=== PATIENT | female | born 2000 | race Caucasian/White ===

== ENCOUNTER → 2018-09-22 | Outpatient (CLI) | payer OTHER ==
--- NOTE | 2018-09-22 08:27 | Diagnostic Imaging Report ---
PROCEDURE: US Gallbladder. TECHNIQUE: Multiple real-time grayscale images were obtained over the right upper quadrant in various projections. INDICATION: Epigastric pain. COMPARISON: None available. FINDINGS: The liver is normal in size and echogenicity. There is no focal hepatic mass. The main portal vein is patent with antegrade flow. The gallbladder is distended without gallstones, wall thickening, or pericholecystic fluid. The common bile duct measures up to 0.3 cm in diameter. No intrahepatic biliary dilation. The visualized portions of the pancreas are normal. Portions of the head and tail are obscured by overlying bowel gas. The right kidney is normal in size. No hydronephrosis, shadowing calculi, or suspicious mass lesion. No right upper quadrant ascites. IMPRESSION: Normal right upper quadrant ultrasound. Dictated by: Dictated on workstation # [id number]
== END ==
LOC: RAD 07:23
PROVIDERS: ATTEND Nurse Practitioner Primary Care
DX: R10.13 Epigastric pain (principal)
CPT/HCPCS: 76705

== ENCOUNTER 2018-09-25 19:40 | Emergency (ER) | payer OTHER ==
[~2018-09-25] VITALS: Ht 149.9 cm; Wt 49.9 kg
[2018-09-25] MEDS ORDERED: NS IV 1000 ML 1,000 ML IV ONE (19:57)
[2018-09-25] MEDS ORDERED: KETOROLAC 30 MG/ML VIAL IVP STA (19:57)
--- NOTE | 2018-09-25 20:06 | ED General ---
General Chief Complaint: General Problems/Pain Stated Complaint: SORE THROAT,CONGESTION,SWOLLEN LYMPH NODES Source of Information: Patient Exam Limitations: No Limitations History of Present Illness Date Seen by Provider: Sep 25, 2018 Time Seen by Provider: 19:51 Initial Comments Here with report of sore throat and congestion for the last few days. States that the sore throat started last Saturday and the body aches started on Saturday or Saturday but worsened today. Take ibuprofen about 6 hours ago and it didn't help out much. She's had nasal congestion as well. Complains of abdominal, back and neck pain that starts at the lower back and hips and radiates up her back to her neck. Denies significant headache currently. Does have mild fever. No vomiting. Timing/Duration: 1-2 Days Severity: Moderate Modifying Factors: improves with Medication, improves with Rest Associated Systoms: No Chest Pain, No Cough; Fever/Chills; No Nausea/Vomiting, No Shortness of Air, No Weakness Allergies and Home Medications Allergies Coded Allergies: No Known Drug Allergies (Unverified , 09/25/18) Patient Home Medication List Home Medication List Reviewed: Yes Review of Systems Review of Systems Constitutional: see HPI; No chills; fever; No weakness EENTM: nose congestion, throat pain; No ear pain Respiratory: No cough, No short of breath Cardiovascular: No chest pain, No edema Gastrointestinal: abdominal pain; No diarrhea, No nausea, No vomiting Genitourinary: no symptoms reported Musculoskeletal: back pain, muscle pain; No muscle weakness; neck pain Skin: no symptoms reported Psychiatric/Neurological: No Symptoms Reported All Other Systems Reviewed Negative Unless Noted: Yes Past Xrngejr-Rpqigm-Wmlhbu Hx Past Med/Social Hx: Reviewed Nursing Past Med/Soc Hx Patient Social History Alcohol Use: Occasionally Uses Recreational Drug Use: No Smoking Status: Never a Smoker 2nd Hand Smoke Exposure: No Recent Foreign Travel: No Contact w/Someone Who Travel: No Recent Hopitalizations: No Past Medical History Surgeries: Yes Tonsillectomy Respiratory: Yes Asthma Cardiac: Yes (fainting heart syndrome) Genitourinary: No Gastrointestinal: No Musculoskeletal: No Endocrine: No HEENT: No Cancer: No Psychosocial: No Integumentary: No Blood Disorders: No Family Medical History Reviewed Nursing Family Hx No Pertinent Family Hx Physical Exam Vital Signs Vital Signs - First Documented 09/25/18 19:46 Temp 99.5 Pulse 81 Resp 17 B/P (MAP) 140/95 (110) Pulse Ox 100 O2 Delivery Room Air Capillary Refill : Height, Weight, BMI Height: '" Weight: lbs. oz. kg; BMI Method: General Appearance: No Apparent Distress, WD/WN HEENT: PERRL/EOMI, TMs Normal, Pharyngeal Erythema Neck: Full Range of Motion, Lymphadenopathy (L), Lymphadenopathy (R), Tender Lateral Respiratory: Lungs Clear, Normal Breath Sounds Cardiovascular: Regular Rate, Rhythm, No Murmur Gastrointestinal: Non Tender, Soft Back: Normal Inspection, No CVA Tenderness, No Vertebral Tenderness Extremity: Normal Range of Motion, Non Tender Neurologic/Psychiatric: Alert, Oriented x3 Skin: Normal Color, Warm/Dry Progress/Results/Core Measures Suspected Sepsis SIRS Temperature: Pulse: Respiratory Rate: Laboratory Tests 09/25/18 20:10: White Blood Count 8.9 Blood Pressure / Mean: Laboratory Tests 09/25/18 20:10: Creatinine 0.80, Platelet Count 252, Total Bilirubin 0.2 Results/Orders Lab Results Laboratory Tests Test 09/25/18 20:05 09/25/18 20:10 Range/Units Urine Color YELLOW Urine Clarity CLEAR Urine pH 8 5-9 Urine Specific [place] 1.015 L 1.016-1.022 Urine Protein NEGATIVE NEGATIVE Urine Glucose (UA) NEGATIVE NEGATIVE Urine Ketones NEGATIVE NEGATIVE Urine Nitrite NEGATIVE NEGATIVE Urine Bilirubin NEGATIVE NEGATIVE Urine Urobilinogen NORMAL NORMAL MG/DL Urine Leukocyte Esterase NEGATIVE NEGATIVE Urine RBC (Auto) NEGATIVE NEGATIVE Urine RBC NONE /HPF Urine WBC NONE /HPF Urine Squamous Epithelial Cells 2-5 /HPF Urine Crystals PRESENT H /LPF Urine Amorphous Sediment MOD JOEL PHOSPHATE H /LPF Urine Bacteria NONE /HPF Urine Casts NONE /LPF Urine Mucus NEGATIVE /LPF Urine Culture Indicated NO Urine Test NEGATIVE NEGATIVE White Blood Count 8.9 4.3-11.0 10^3/uL Red Blood Count 4.63 4.35-5.85 10^6/uL Hemoglobin 14.4 11.5-16.0 G/DL Hematocrit 44 35-52 % Mean Corpuscular Volume 95 80-99 FL Mean Corpuscular Hemoglobin 31 25-34 PG Mean Corpuscular Hemoglobin Concent 33 32-36 G/DL Red Cell Distribution Width 11.9 10.0-14.5 % Platelet Count 252 130-400 10^3/uL Mean Platelet Volume 11.2 H 7.4-10.4 FL Neutrophils (%) (Auto) 58 42-75 % Lymphocytes (%) (Auto) 26 12-44 % Monocytes (%) (Auto) 12 0-12 % Eosinophils (%) (Auto) 4 0-10 % Basophils (%) (Auto) 0 0-10 % Neutrophils # (Auto) 5.2 1.8-7.8 X 10^3 Lymphocytes # (Auto) 2.3 1.0-4.0 X 10^3 Monocytes # (Auto) 1.0 0.0-1.0 X 10^3 Eosinophils # (Auto) 0.3 0.0-0.3 10^3/uL Basophils # (Auto) 0.0 0.0-0.1 10^3/uL Sodium Level 141 135-145 MMOL/L Potassium Level 3.5 L 3.6-5.0 MMOL/L Chloride Level 105 98-107 MMOL/L Carbon Dioxide Level 22 21-32 MMOL/L Anion Gap 14 5-14 MMOL/L Blood Urea Nitrogen 16 7-18 MG/DL Creatinine 0.80 0.60-1.30 MG/DL Estimat Glomerular Filtration Rate > 60 BUN/Creatinine Ratio 20 Glucose Level 82 70-105 MG/DL Calcium Level 10.0 8.5-10.1 MG/DL Corrected Calcium 8.5-10.1 MG/DL Total Bilirubin 0.2 0.1-1.0 MG/DL Aspartate Amino Transf (AST/SGOT) 17 5-34 U/L Alanine Aminotransferase (ALT/SGPT) 15 0-55 U/L Alkaline Phosphatase 59 40-136 U/L C-Reactive Protein High Sensitivity 1.85 H 0.00-0.50 MG/DL Total Protein 7.9 6.4-8.2 GM/DL Albumin 4.8 H 3.2-4.5 GM/DL Monoscreen NEGATIVE NEGATIVE Micro Results Microbiology 09/25/18 Influenza Types A,B Antigen (JENNIE) - Final, Complete My Orders Orders - MUKESH LOPEZ MD Cbc With Automated Diff (09/25/18 19:57) Comprehensive Metabolic Panel (09/25/18 19:57) Hs C Reactive Protein (09/25/18 19:57) Monotest (09/25/18 19:57) Ua Culture If Indicated (09/25/18 19:57) Influenza A And B Antigens (09/25/18 19:57) Saline Lock/Iv-Start (09/25/18 19:57) Ns Iv 1000 Ml (Sodium Chloride 0.9%) (09/25/18 19:57) Ketorolac Injection (Toradol Injection) (09/25/18 19:57) Chest Pa/Lat (2 View) (09/25/18 20:49) Acetaminophen Tablet (Tylenol Tablet) (09/25/18 21:15) Hcg,Qualitative Urine (09/25/18 21:30) Medications Given in ED Current Medications Medications Dose Ordered Sig/Jerry Route Start Time Stop Time Status Last Admin Dose Admin Sodium Chloride 1,000 ml @ 0 mls/hr Q0M ONCE IV 09/25/18 19:57 09/25/18 20:01 DC 09/25/18 20:15 1,000 MLS/HR Vital Signs/I&O 09/25/18 19:46 Temp 99.5 Pulse 81 Resp 17 B/P (MAP) 140/95 (110) Pulse Ox 100 O2 Delivery Room Air Capillary Refill : Progress Note : Progress Note Seen and evaluated. IV, labs, UA and UCG ordered. Normal saline 1 L bolus and Toradol 30 mg IV ordered. Influenza and monoscreen ordered. Monitor patient. 2114: CBC is negative and does not show any indication of serious bacterial infection. CRP is low as well. UA is negative. We did get chest x-ray as she had complained of some rib pain over the last several weeks to rule out pneumonia. We will go ahead and give Tylenol 1 g by mouth. She states it's Toradol did help out with her pain in the fluids and felt as well. 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 [place] influenza are negative. At this point I do not believe we need to pursue further evaluation related to meningeal symptoms that she has full range of motion of her neck and labs do not indicate serious bacterial infection. This was discussed with the patient and she agrees at this point. 2155: States actually she is much better now. Chest x-ray negative. Discharged home with return precautions. Patient verbalize understanding instructions and agreement with plan. Diagnostic Imaging Diagonstic Imaging: Xray Plain Films/CT/US/NM/MRI: chest Comments VIA [facility], [facility]. [place], [place] NAME: JUAN CARVALHO [facility] REC#: [id number] PT STATUS: REG ER : 2000 PHYSICIAN: MUKESH LOPEZ MD ADMIT DATE: 09/25/18/ER Draft Date of Exam:09/25/18 CHEST PA/LAT (2 VIEW) INDICATION: Left-sided chest pain. COMPARISON: None. EXAMINATION: Frontal and lateral views of the chest were obtained. FINDINGS: Normal heart size and pulmonary vascularity. The lungs are clear. There are no signs of infiltrate, pleural effusions or pneumothoraces. The visualized osseous structures show no acute abnormalities. IMPRESSION: No acute process. No signs of infiltrates, effusions or pneumothoraces. Dictated on workstation # [id number] Dict: 09/25/[id number] Trans: 09/25/182148 [facility] [id number] Interpreted by: STEPHANIE BENITEZ MD Electronically signed by: Departure Impression Primary Impression: Viral upper respiratory infection Additional Impression: Myalgia Disposition: HOME, SELF-CARE Condition: Improved Departure-Patient Inst. Decision time for Depature: 21:58 Referrals: [facility] (PCP/Family) Primary Care Physician Patient Instructions: Viral Upper Respiratory Infection, Adult (DC) Add. Discharge Instructions: All discharge instructions reviewed with patient and/or family. Voiced understanding. Drink plenty of fluids. You may take ibuprofen 400-600 mg every 8 hours as needed for fever or pain. You may take Tylenol/acetaminophen 1000 mg every 8 hours as needed for fever or pain. Follow-up with your DrCarlos Enrique in a few days for recheck and further evaluation if not improved. Return for worse pain, fever, vomiting, weakness, vision or balance problems, increasing neck pain or headache or other concerns as needed. Copy Copies To 1: KINGA MORRIS MD, TIMOTHY D MD Sep 25, 2018 20:06
[2018-09-25 20:19] LABS: BASOPHILS % (AUTO) 0 % (0-10); EOSINOPHILS # (AUTO) 0.3 10^3/uL (0.0-0.3); EOSINOPHILS % (AUTO) 4 % (0-10); HEMATOCRIT 44 % (35-52); HEMOGLOBIN 14.4 G/DL (11.5-16.0); LYMPHOCYTES # (AUTO) 2.3 X 10^3 (1.0-4.0); LYMPHOCYTES % (AUTO) 26 % (12-44); MEAN CORPUSCULAR HEMOGLOBIN 31 PG (25-34); MEAN CORPUSCULAR HGB CONC 33 G/DL (32-36); MEAN CORPUSCULAR VOLUME 95 FL (80-99); MEAN PLATELET VOLUME 11.2 FL (7.4-10.4); MONOCYTES % (AUTO) 12 % (0-12); NEUTROPHILS # (AUTO) 5.2 X 10^3 (1.8-7.8); NEUTROPHILS % (AUTO) 58 % (42-75); PLATELET COUNT 252 10^3/uL (130-400); RED BLOOD COUNT 4.63 10^6/uL (4.35-5.85); RED CELL DISTRIBUTION WIDTH 11.9 % (10.0-14.5); WHITE BLOOD COUNT 8.9 10^3/uL (4.3-11.0)
[2018-09-25 20:20] LABS: BILIRUBIN,URINE NEGATIVE (NEGATIVE); CLARITY,URINE CLEAR; COLOR,URINE YELLOW; GLUCOSE, URINE (UA) NEGATIVE (NEGATIVE); KETONES,URINE NEGATIVE (NEGATIVE); LEUKOCYTE ESTERASE ,URINE NEGATIVE (NEGATIVE); NITRITE,URINE NEGATIVE (NEGATIVE); PH,URINE 8 (5-9); PROTEIN,URINE NEGATIVE (NEGATIVE); UROBILINOGEN,URINE NORMAL (NORMAL)
[2018-09-25 20:27] LABS: AMORPHOUS SEDIMENT,UR MOD AMOR PHOSPHATE /LPF
[2018-09-25 20:45] LABS: ALANINE AMINOTRANSFERASE 15 U/L (0-55); ALBUMIN 4.8 GM/DL (3.2-4.5); ALKALINE PHOSPHATASE 59 U/L (40-136); BILIRUBIN,TOTAL 0.2 MG/DL (0.1-1.0); BUN/CREATININE RATIO 20; CARBON DIOXIDE 22 MMOL/L (21-32); CHLORIDE 105 MMOL/L (98-107); GFR ESTIMATED > 60; GLUCOSE 82 MG/DL (70-105); POTASSIUM 3.5 MMOL/L (3.6-5.0); SODIUM 141 MMOL/L (135-145); TOTAL PROTEIN 7.9 GM/DL (6.4-8.2)
[2018-09-25] MEDS ORDERED: ACETAMINOPHEN 500 MG TAB (TYLENOL) PO STA (21:15)
--- NOTE | 2018-09-25 21:50 | Diagnostic Imaging Report ---
INDICATION: Left-sided chest pain. COMPARISON: None. EXAMINATION: Frontal and lateral views of the chest were obtained. FINDINGS: Normal heart size and pulmonary vascularity. The lungs are clear. There are no signs of infiltrate, pleural effusions or pneumothoraces. The visualized osseous structures show no acute abnormalities. IMPRESSION: No acute process. No signs of infiltrates, effusions or pneumothoraces. Dictated by: Dictated on workstation # [id number]
[2018-09-25 22:11] VITALS: BP 108/64
--- OUTSIDE RECORDS SUMMARY | 2018-09-26 04:25 | XMS REPORT ---
Author Ana Maria Ahumada [facility] Address [address] [place] [address] Care Team Providers Care Card Grinder Helper Name Role Phone Ana Maria Hewitt Unavailable PROBLEMS Type Condition ICD9-CM Code [id number] Code Onset Dates Condition Status SNOMED Code Problem Amenorrhea N91.2 Active 21270420 ALLERGIES No Known Allergies ENCOUNTERS Encounter Location Date Diagnosis [facility] [address] [place], [place] [id number] Mar, Amenorrhea N91.2 and Screening for STD (sexually transmitted disease) Z11.3 IMMUNIZATIONS No Known Immunizations SOCIAL HISTORY Never Assessed REASON FOR VISIT pelvic exam and STD testing PLAN OF CARE Activity Details Follow Up prn Reason: Pending Test RPR, Rfx Qn RPR/Confirm TP Pending Test Human Immunodeficiency Virus 1/O/2 (HIV-1/O/2) Antibodies, Preliminary Test Pending Test Hep C Antibody Pending Test HSV Type 2-Specific Ab, IgG Pending Test Chlamydia/GC Amplification Pending Test Ultrasound : Pelvic Limited VITAL SIGNS BMI 22.82 kg/m2 2018-04-01 Height 59 in 2018-04-01 Weight 113 lbs 2018-04-01 Blood pressure systolic 120 mm Hg 2018-04-01 Blood pressure diastolic 78 mm Hg 2018-04-01 MEDICATIONS No Known Medications RESULTS Name Result Date Reference Range Test, Urine Test, Urine postive PROCEDURES Procedure Date Ordered Result Body Site URINE TEST URINE TEST, BY VISUAL COLOR COMPARISON METHODS April 01, 2018 INSTRUCTIONS MEDICATIONS ADMINISTERED No Known Medications MEDICAL (GENERAL) HISTORY Type Description Date Surgical History tonsillectomy Surgical History adnoidectomy Surgical History ear tubes
--- OUTSIDE RECORDS SUMMARY | 2018-09-26 04:25 | XMS REPORT | Continuity of Care Document ---
Author Author [facility] Organization [facility] Address [address] [place] [address] ;ext= Care Team Providers Care Fire Suppression Captain Name Role Phone SVETA BURTON Admphyjosephine Unavailable SVETA BURTON Attkuldeep Unavailable Hospital Admission Diagnosis * No data in the System Social History Element Description Code Description Smoking Status Code System Start Date End Date Smoking Status [id number] Never smoker SNOMED-CT Problems * No Problems Reported Medications SNOMED CT Description 447523819 Patient Not On Self-Medication Allergies Code Code System Allergy Substance Type Reaction Severity Start Date End Date Status 361573 RXNorm Triple Antibiotic Max St Drug allergy Rash Moderate 2016 Active Results Laboratory Results Order: HCG Qualatative Urine Legend: D=Delta, H=High, L=Low, HH=Critical High, LL=Critical Low, AA=Critical Alpha-Numeric, C=Corrected, A=Abnormal LOINC Test Result Flag Range Units Date 1HCG SerPl-Imp Negative NEGATIVE 06/01/2017 16:50 * Performing [facility] Foot[facility]:* [id number] [address] [place] [address] - BLUE M RITO Vital Signs Vitals Value Date O2% BldC Oximetry 96 06/01/2017 BP Systolic 125 mmHg 06/01/2017 BP Diastolic 71 mmHg 06/01/2017 Height 59 in 06/01/2017 Weight Measured 111 lbs 06/01/2017 BSA (Body Surface Area) 1.84977 06/01/2017 BMI (Body Mass Index) 22.6 06/01/2017 Body Temperature 97.9 F 06/01/2017 Respiratory Rate 14 06/01/2017 Plan of Care * No data in the system Procedures Code Code System Procedure Name Target Site Date of Procedure [id number] SNOMED Tonsillectomy and adenoidectomy Unknown Encounters * No data in the system Immunizations * No data in the system Functional Status * No data in the system Hospital Discharge Instructions * No data in the system
--- OUTSIDE RECORDS SUMMARY | 2018-09-26 04:25 | XMS REPORT ---
Author Author Ana Maria Hewitt [facility] Address [address] [place] [address] Care Team Providers Care Residency Program Coordinator Name Role Phone Ana Maria Hewitt Unavailable PROBLEMS Type Condition ICD9-CM Code [id number] Code Onset Dates Condition Status SNOMED Code Problem Amenorrhea N91.2 Active 35048794 ALLERGIES No Information ENCOUNTERS Encounter Location Date Diagnosis [facility] [address] [place], [place] [id number] Mar, [facility] [address] [place] [id number] Mar, Amenorrhea N91.2 and Screening for STD (sexually transmitted disease) Z11.3 IMMUNIZATIONS No Known Immunizations SOCIAL HISTORY Never Assessed REASON FOR VISIT Lab results PLAN OF CARE VITAL SIGNS MEDICATIONS Unknown Medications RESULTS No Results PROCEDURES No Known procedures INSTRUCTIONS MEDICATIONS ADMINISTERED No Known Medications MEDICAL (GENERAL) HISTORY Type Description Date Surgical History tonsillectomy Surgical History adnoidectomy Surgical History ear tubes
--- OUTSIDE RECORDS SUMMARY | 2018-09-26 04:26 | XMS REPORT | Continuity of Care Document ---
Author Author [facility] Organization [facility] Address [address] [place] [address] ;ext= Care Team Providers Care Ceo Name Role Phone SVETA BURTON Admphys Unavailable SVETA BURTON Attkuldeep Unavailable Hospital Admission Diagnosis Code Admission Diagnosis Date [id number] Contusion of scalp Social History Element Description Code Description Smoking Status Code System Start Date End Date Smoking Status [id number] Never smoker SNOMED-CT Problems * No Problems Reported Medications SNOMED CT Description 466147319 Patient Not On Self-Medication Allergies Code Code System Allergy Substance Type Reaction Severity Start Date End Date Status 830320 RXNorm Triple Antibiotic Max St Drug allergy Rash Moderate 2016 Active Results Laboratory Results Order: HCG Qualatative Urine Legend: D=Delta, H=High, L=Low, HH=Critical High, LL=Critical Low, AA=Critical Alpha-Numeric, C=Corrected, A=Abnormal LOINC Test Result Flag Range Units Date 1HCG SerPl-Imp Negative NEGATIVE 06/01/2017 16:50 * Performing Lab Footnotes:* [id number] [address] [place] [address] - BLUE M RITO Radiology Results Order: CTTHOWO CT Thoracic Spine WO/Contrast* Exam Completion Date:06/01/2017 16 :48 INDICATION: fall, thoracic painCOMPARISON: none.CT Thoracic Spine WO/Contrast: Transverse, coronal, sagittal imaging. There moriah [employer] report. Vertebral alignment is within normal limits. There is noevidence of significant subluxation. . Disc spacing appears normal. Noevidence of a compression fracture. IMPRESSION: Within normal limits.Released By SCOOBY ZELAYAate : 06/03/2017 08:42 Order: CTHDWO CT Head or Brain WO/Contrast* Exam Completion Date:06/01/2017 16: 47 INDICATION: fall, head injuryCOMPARISON: none.CT Head or Brain WO/Contrast: There is a [employer] report. Ventricle sizeappears to be normal. There is no evidence of hemorrhage, acute infarct, ormass. There is no midline shift.IMPRESSION: Within normal limits.Released By SCOOBY ZELAYAate: 08:38 Order: CTCERWO CT Cerv Spine WO/Contrast* Exam Completion Date:06/01/2017 16:47 INDICATION: fall, neck painCOMPARISON: none.CT Cerv Spine WO/Contrast: Transverse, coronal, sagittal imaging. There moriah [employer] report. Incomplete fusion of C1 should be a developmental variant.Vertebral alignment is within normal limits. There is no evidence ofsignificant subluxation. No significant disc space narrowing. No evidence of acompression fracture. IMPRESSION: No evidence of a fracture.Released By SVETA WASHNIGTON, SCOOBYate: 06/03/2017 08:40 Vital Signs Vitals Value Date O2% BldC Oximetry 96 06/01/2017 BP Systolic 125 mmHg 06/01/2017 BP Diastolic 71 mmHg 06/01/2017 Height 59 in 06/01/2017 Weight Measured 111 lbs 06/01/2017 BSA (Body Surface Area) 1.94767 06/01/2017 BMI (Body Mass Index) 22.6 06/01/2017 Body Temperature 97.9 F 06/01/2017 Respiratory Rate 14 06/01/2017 Plan of Care * No data in the system Procedures Code Code System Procedure Name Target Site Date of Procedure [id number] SNOMED Tonsillectomy and adenoidectomy Unknown Encounters Date Code Diagnosis Status (ICD10) - [id number] CONTUSION SCALP INITIAL ENCOUNTER Active Immunizations * No data in the system Functional Status * No data in the system Hospital Discharge Instructions * No data in the system
--- OUTSIDE RECORDS SUMMARY | 2018-09-26 04:26 | XMS REPORT | Continuity of Care Document ---
Author Author [facility] Organization [facility] Address Unknown Phone Unavailable Allergies Active Description Code Type Severity Reaction Onset Reported/Identified Relationship to Patient Clinical Status Yes Triple Antibiotic Drug N/A N/A Yes Triple Antibiotic [place] [address] [address] Moderate Rash 06/01/2017 Medications There is no data. Problems Date Dx Coded Attending Type Code Diagnosis Diagnosed By 07/18/2017 SVETA BURTON S00.03XA CONTUSION OF SCALP, INITIAL ENCOUNTER 07/18/2017 SVETA BURTON Y92.[address] OF OCCURRENCE OF THE EXTERNAL CAUSE 07/18/2017 SVETA BURTON Y93.45 ACTIVITY, CHEERLEADING Procedures There is no data. Results There is no data. Encounters ACCT No. Visit Date/Time Discharge Status Pt. Type Provider Facility Loc./Unit Complaint [id number] 06/01/2017 16:38:00 ACT Unknown SVETA BURTON [facility] NSER HEAD INJURY-FELL DURING CHEER STUNT [id number] 02/12/2018 09:02:00 02/12/2018 11:40:00 DIS Emergency Christina Wang [facility] ED ed visit [id number] 12/10/2017 11:39:46 12/10/2017 23:59:59 DIS Outpatient MARIA DOLORES BRIZUELA [facility] RAD [id number] 06/08/2017 17:14:18 ACT Document Registration
== END 2018-09-25 22:13 | disposition home or self-care (01) ==
LOC: EDUNIT# 19:40 → ER 19:43
DX: J06.9 Acute upper respiratory infection, unspecified (principal); M79.10 Myalgia, unspecified site; J45.909 Unspecified asthma, uncomplicated; Z90.89 Acquired absence of other organs
CPT/HCPCS: 36415; 71046; 80053; 81000; 84703; 85025; 86141; 86308; 87804; 96361; 96374

== ENCOUNTER 2018-09-26 22:48 | Emergency (ER) | payer OTHER ==
[~2018-09-26] VITALS: Ht 149.9 cm; Wt 49.9 kg
[2018-09-26] MEDS ORDERED: NS IV 1000 ML 1,000 ML IV ONE (23:26)
[2018-09-26] MEDS ORDERED: KETOROLAC 30 MG/ML VIAL IVP STA (23:35)
[2018-09-26] MEDS ORDERED: ORPHENADRINE 60 MG/2 ML (NORFLEX) AMP IV STA (23:35)
--- NOTE | 2018-09-26 23:44 | ED General ---
General Chief Complaint: General Problems/Pain Stated Complaint: SPINAL NECK PAIN;HEAD PAIN Source of Information: Patient Exam Limitations: No Limitations History of Present Illness Date Seen by Provider: Sep 26, 2018 Time Seen by Provider: 23:25 Initial Comments Here with report of neck pain and upper back pain. Seen yesterday after having febrile illness. Patient was evaluated then found to have normal white count and low CRP. We did defer lumbar puncture due to the neck pain at that time. Today she comes back with the pain that was radiating from the hip sent to the head but now is radiating from the mid back up to the head. It does appear to be more paraspinous from the upper thoracic and through the neck to the occiput bilateral. Denies nausea or vomiting. She has been taking ibuprofen today. Denies fever today. Last dose of ibuprofen was 400 mg at 930. Denies dysuria or diarrhea. She did report trying to increase her fluids today. Timing/Duration: 2-3 Days, Getting Worse Severity: Moderate Associated Systoms: No Chest Pain, No Fever/Chills; Headaches; No Nausea/ Vomiting, No Shortness of Air, No Weakness Allergies and Home Medications Allergies Coded Allergies: orphenadrine (Verified Adverse Reaction, Unknown, tachycardia, anxiety, ) Patient Home Medication List Home Medication List Reviewed: Yes Review of Systems Review of Systems Constitutional: see HPI, chills; No fever EENTM: no symptoms reported Respiratory: No cough, No short of breath Cardiovascular: No chest pain, No edema Gastrointestinal: No abdominal pain, No nausea, No vomiting Genitourinary: no symptoms reported Musculoskeletal: see HPI, back pain, muscle stiffness, neck pain Skin: No change in color, No rash Psychiatric/Neurological: See HPI, Headache; Denies Numbness, Denies Paresthesia, Denies Tingling All Other Systems Reviewed Negative Unless Noted: Yes Past Lctellf-Xutsmt-Kjsuim Hx Past Med/Social Hx: Reviewed Nursing Past Med/Soc Hx Patient Social History Alcohol Use: Denies Use Recreational Drug Use: No Smoking Status: Never a Smoker 2nd Hand Smoke Exposure: No Recent Foreign Travel: No Contact w/Someone Who Travel: No Recent Hopitalizations: No Past Medical History Surgeries: Yes Tonsillectomy Respiratory: Yes Asthma Cardiac: Yes (fainting heart syndrome) Genitourinary: No Gastrointestinal: No Musculoskeletal: No Endocrine: No HEENT: No Cancer: No Psychosocial: No Integumentary: No Blood Disorders: No Family Medical History Reviewed Nursing Family Hx No Pertinent Family Hx Physical Exam Vital Signs Vital Signs - First Documented 09/26/18 23:16 Temp 97.7 Pulse 70 Resp 12 B/P (MAP) 141/74 (96) Pulse Ox 100 O2 Delivery Room Air Capillary Refill : Height, Weight, BMI Height: 4'11.00" Weight: 110lbs. oz. 49.448099oi; BMI Method:Stated General Appearance: No Apparent Distress, WD/WN HEENT: PERRL/EOMI, TMs Normal, Normal ENT Inspection, Pharynx Normal Neck: Non Tender, Supple Respiratory: Lungs Clear, Normal Breath Sounds Cardiovascular: Regular Rate, Rhythm, No Murmur Gastrointestinal: Non Tender, Soft Back: No CVA Tenderness, No Vertebral Tenderness, Other (tender along the lateral aspect of the upper thoracic spine and cervical spine bilaterally from the level of the shoulder blades to the occiput.) Neurologic/Psychiatric: Alert, Oriented x3, No Motor/Sensory Deficits Skin: Normal Color, Warm/Dry Progress/Results/Core Measures Suspected Sepsis SIRS Temperature: Pulse: Respiratory Rate: Laboratory Tests 09/26/18 23:55: White Blood Count 11.4H Blood Pressure / Mean: Laboratory Tests 09/26/18 23:55: Creatinine 0.78, Platelet Count 265, Total Bilirubin 0.2 Results/Orders Lab Results Laboratory Tests Test 09/26/18 23:55 Range/Units White Blood Count 11.4 H 4.3-11.0 10^3/uL Red Blood Count 4.18 L 4.35-5.85 10^6/uL Hemoglobin 13.5 11.5-16.0 G/DL Hematocrit 40 35-52 % Mean Corpuscular Volume 96 80-99 FL Mean Corpuscular Hemoglobin 32 25-34 PG Mean Corpuscular Hemoglobin Concent 34 32-36 G/DL Red Cell Distribution Width 11.9 10.0-14.5 % Platelet Count 265 130-400 10^3/uL Mean Platelet Volume 11.1 H 7.4-10.4 FL Neutrophils (%) (Auto) 65 42-75 % Lymphocytes (%) (Auto) 24 12-44 % Monocytes (%) (Auto) 8 0-12 % Eosinophils (%) (Auto) 3 0-10 % Basophils (%) (Auto) 0 0-10 % Neutrophils # (Auto) 7.4 1.8-7.8 X 10^3 Lymphocytes # (Auto) 2.7 1.0-4.0 X 10^3 Monocytes # (Auto) 0.9 0.0-1.0 X 10^3 Eosinophils # (Auto) 0.4 H 0.0-0.3 10^3/uL Basophils # (Auto) 0.0 0.0-0.1 10^3/uL Sodium Level 140 135-145 MMOL/L Potassium Level 4.0 3.6-5.0 MMOL/L Chloride Level 107 98-107 MMOL/L Carbon Dioxide Level 20 L 21-32 MMOL/L Anion Gap 13 5-14 MMOL/L Blood Urea Nitrogen 12 7-18 MG/DL Creatinine 0.78 0.60-1.30 MG/DL Estimat Glomerular Filtration Rate > 60 BUN/Creatinine Ratio 15 Glucose Level 92 70-105 MG/DL Calcium Level 9.7 8.5-10.1 MG/DL Corrected Calcium 9.3 8.5-10.1 MG/DL Total Bilirubin 0.2 0.1-1.0 MG/DL Aspartate Amino Transf (AST/SGOT) 14 5-34 U/L Alanine Aminotransferase (ALT/SGPT) 14 0-55 U/L Alkaline Phosphatase 55 40-136 U/L C-Reactive Protein High Sensitivity 1.27 H 0.00-0.50 MG/DL Total Protein 7.3 6.4-8.2 GM/DL Albumin 4.5 3.2-4.5 GM/DL My Orders Orders - MUKESH LOPEZ MD Cbc With Automated Diff (09/26/18 23:26) Comprehensive Metabolic Panel (09/26/18 23:26) Hs C Reactive Protein (09/26/18 23:26) Saline Lock/Iv-Start (09/26/18 23:26) Ns Iv 1000 Ml (Sodium Chloride 0.9%) (09/26/18 23:26) Ketorolac Injection (Toradol Injection) (09/26/18 23:35) Orphenadrine Injection (Norflex Injectio (09/26/18 23:35) Ct Head Wo (09/27/18 00:01) Chest Pa/Lat (2 View) (09/27/18 00:01) Diphenhydramine Tablet (Benadryl Tablet) (09/27/18 00:08) Dexamethasone Injection (Decadron Inject (09/27/18 00:09) Amoxicillin/Clavulanate Tablet (Augmenti (09/27/18 01:23) Medications Given in ED Current Medications Medications Dose Ordered Sig/Jerry Route Start Time Stop Time Status Last Admin Dose Admin Dexamethasone Sodium Phosphate 10 mg STK-MED ONCE .ROUTE 09/27/18 00:09 09/27/18 00:12 DC 09/27/18 00:15 10 MG Diphenhydramine HCl 25 mg STK-MED ONCE PO 09/27/18 00:08 09/27/18 00:10 DC 09/27/18 00:15 25 MG Sodium Chloride 1,000 ml @ 0 mls/hr Q0M ONCE IV 09/26/18 23:26 09/26/18 23:27 DC 09/26/18 23:56 1,000 MLS/HR Vital Signs/I&O 09/26/18 23:16 Temp 97.7 Pulse 70 Resp 12 B/P (MAP) 141/74 (96) Pulse Ox 100 O2 Delivery Room Air Capillary Refill : Progress Note : Progress Note Seen and evaluated. IV, labs, chest x-ray and CT head ordered. Normal saline 1 L bolus. Norflex 60 mg IV and Toradol 15 mg IV. Negative urine test last night. Patient did have reaction after Norflex and felt heart racing. Benadryl 25 mg by mouth ordered. Decadron 10 mg IV ordered. She only allowed for half of the Decadron. Monitor patient. 0125: Labs reviewed and CT complete. Patient feels much better now. CT does show left and right ethmoid sinus opacification concerning for sinusitis. This was discussed with the patient. We will treat for sinusitis. Augmentin 875 one tab by mouth given. Given that she is feeling better and sinus infection noted which could account for her headache we will go ahead and treat for that. Patient does not want to do a lumbar puncture. We will treat the sinusitis as well as what appears to be muscular back pain. She is in full agreement with this plan. Discharged home with return precautions. Patient verbalize understanding instructions and agreement with plan. Diagnostic Imaging Diagonstic Imaging: CT Plain Films/CT/US/NM/MRI: head Comments No acute hemorrhage, hydrocephalus or mass effect. Severe left and moderate right ethmoid sinus opacification. Frothy secretion in the left sphenoid sinus. Reviewed: Reviewed [place] Hawk Study, Reviewed by Me Diagonstic Imaging: Xray Plain Films/CT/US/NM/MRI: chest Comments No acute findings on two-view chest x-ray Reviewed: Reviewed by Me Departure Impression Primary Impression: Sinusitis chronic, ethmoidal Additional Impressions: Back pain Qualified Codes: M54.6 - Pain in thoracic spine Headache Qualified Codes: R51 - Headache Disposition: 01 HOME, SELF-CARE Condition: Improved Departure-Patient Inst. Decision time for Depature: 01:34 Referrals: [facility] (PCP/Family) Primary Care Physician Patient Instructions: Headache, Adult (DC), Sinusitis, Adult (DC), Upper Back Pain (DC) Add. Discharge Instructions: All discharge instructions reviewed with patient and/or family. Voiced understanding. You may continue Tylenol/acetaminophen 1000 mg every 8 hours as needed for pain. You may take ibuprofen 400 or 600 mg every 8 hours as needed for pain. Drink plenty of fluids. You may use Afrin nasal spray or the generic, 12 hour relief, 2 sprays to each nostril twice daily for 3 days only and then stop. Do not use more than 3 days. Scripts Amoxicillin/Potassium Clav (Augmentin 875-125 Tablet) 1 Each Tablet 1 EACH PO BID, #20 TAB 0 Refills Prov: MUKESH LOPEZ MD 09/27/18 MUKESH LOPEZ MD Sep 26, 2018 23:44
[2018-09-27 00:04] LABS: BASOPHILS % (AUTO) 0 % (0-10); EOSINOPHILS # (AUTO) 0.4 10^3/uL (0.0-0.3); EOSINOPHILS % (AUTO) 3 % (0-10); HEMATOCRIT 40 % (35-52); HEMOGLOBIN 13.5 G/DL (11.5-16.0); LYMPHOCYTES # (AUTO) 2.7 X 10^3 (1.0-4.0); LYMPHOCYTES % (AUTO) 24 % (12-44); MEAN CORPUSCULAR HEMOGLOBIN 32 PG (25-34); MEAN CORPUSCULAR HGB CONC 34 G/DL (32-36); MEAN CORPUSCULAR VOLUME 96 FL (80-99); MEAN PLATELET VOLUME 11.1 FL (7.4-10.4); MONOCYTES # (AUTO) 0.9 X 10^3 (0.0-1.0); MONOCYTES % (AUTO) 8 % (0-12); NEUTROPHILS # (AUTO) 7.4 X 10^3 (1.8-7.8); NEUTROPHILS % (AUTO) 65 % (42-75); PLATELET COUNT 265 10^3/uL (130-400); RED BLOOD COUNT 4.18 10^6/uL (4.35-5.85); RED CELL DISTRIBUTION WIDTH 11.9 % (10.0-14.5); WHITE BLOOD COUNT 11.4 10^3/uL (4.3-11.0)
[2018-09-27] MEDS ORDERED: diphenhydrAMINE 25 MG TAB (BENADRYL) PO ONE (00:08)
[2018-09-27] MEDS: DEXAMETHASONE 10 MG/ML (DECADRON) 1 ML VIAL ONE ×2 (00:15→00:19)
--- OUTSIDE RECORDS SUMMARY | 2018-09-27 00:19 | XMS REPORT | Continuity of Care Document ---
Author Author [facility] Organization [facility] Address Unknown Phone Unavailable Allergies Active Description Code Type Severity Reaction Onset Reported/Identified Relationship to Patient Clinical Status Yes Triple Antibiotic Drug N/A N/A Yes [place] [address] Moderate Rash 06/01/2017 Medications There is no [...] Status Pt. Type Provider Facility Loc./Unit Complaint [id number] 06/01/2017 16:38:00 ACT Unknown SVETA BURTON [facility] NSER HEAD INJURY-FELL DURING CHEER STUNT [id number] 02/12/2018 09:02:00 02/12/2018 11:40:00 DIS Emergency Christina Wang [facility] ED ed visit [id number] 12/10/2017 11:39:46 12/10/2017 23:59:59 DIS Outpatient MARIA DOLORES BRIZUELA [facility]HA RAD [id number] 06/08/2017 17:14:18 ACT Document Registration
[2018-09-27 00:22] LABS: ALANINE AMINOTRANSFERASE 14 U/L (0-55); ALBUMIN 4.5 GM/DL (3.2-4.5); ALKALINE PHOSPHATASE 55 U/L (40-136); BILIRUBIN,TOTAL 0.2 MG/DL (0.1-1.0); BUN/CREATININE RATIO 15; CALCIUM 9.7 MG/DL (8.5-10.1); CARBON DIOXIDE 20 MMOL/L (21-32); CHLORIDE 107 MMOL/L (98-107); CREATININE SERUM 0.78 MG/DL (0.60-1.30); GFR ESTIMATED > 60; GLUCOSE 92 MG/DL (70-105); SODIUM 140 MMOL/L (135-145); TOTAL PROTEIN 7.3 GM/DL (6.4-8.2)
[2018-09-27] MEDS ORDERED: AUGMENTIN 875 MG TAB (AMOXICILLIN/CLAVULANATE) PO STA (01:23)
[2018-09-27] MEDS ORDERED: AMOX-358 PO (01:38)
[2018-09-27 01:50] VITALS: BP 118/57
--- NOTE | 2018-09-27 05:38 | Diagnostic Imaging Report ---
INDICATION: Headache and back pain. COMPARISON: 09/25/2018. FINDINGS: Frontal and lateral views of the chest demonstrate normal heart size and pulmonary vascularity. The lungs are clear. There are no signs of infiltrate, pleural effusions or pneumothoraces. The visualized osseous structures show no acute abnormalities. IMPRESSION: 1. No acute process. No signs of infiltrates, effusions or pneumothoraces. Dictated by: Dictated on workstation # [id number]
--- NOTE | 2018-09-27 06:42 | Diagnostic Imaging Report ---
INDICATION: Headache and back pain TECHNIQUE: Routine non contrast-enhanced axial images were obtained from the skull base to the vertex. COMPARISON: None. FINDINGS: The ventricles and cortical sulci are normal in size and contour. There is no midline shift or mass-effect. No acute intra-axial hemorrhage is seen. There are no abnormal areas of increased or decreased density to suggest acute hemorrhage or edema. No extra-axial masses or collections are present. The bony calvarium is intact. The visualized paranasal sinuses show scattered opacification of the ethmoid air cells and mucosal thickening of the frontal and sphenoid sinuses. The mastoid air cells are clear. IMPRESSION: 1. No acute intracranial abnormality. No CT evidence of mass, acute infarct or intracranial hemorrhage. 2. Paranasal sinus disease. Clinical correlation for underlying sinusitis is recommended. Dictated by: Dictated on workstation # [id number]
== END 2018-09-27 01:50 | disposition home or self-care (01) ==
LOC: EDUNIT# 22:48 → ER 22:50
DX: J32.2 Chronic ethmoidal sinusitis (principal); M54.2 Cervicalgia; R51 Headache; J45.909 Unspecified asthma, uncomplicated; Z88.8 Allergy status to other drugs, medicaments and biological substances; Z90.89 Acquired absence of other organs
CPT/HCPCS: 36415; 70450; 71046; 80053; 85025; 86141; 96374; 96375

== ENCOUNTER → 2019-01-27 | Emergency (ER) | payer OTHER ==
[~2019-01-27] VITALS: Ht 149.9 cm; Wt 49.9 kg
[~2019-01-27] MED LIST: ACETAMINOPHEN 500 MG TAB (TYLENOL) PO STA; AMOX-358 PO; APAP 325 MG/10.15 ML LIQ (TYLENOL) UDC PO STA
--- OUTSIDE RECORDS SUMMARY | 2019-01-27 14:10 | XMS REPORT | Continuity of Care Document ---
Author Author [facility] Organization [facility] Address Unknown Phone Unavailable Allergies Active Description Code Type Severity Reaction Onset Reported/Identified Relationship to Patient Clinical Status Yes Triple Antibiotic Drug N/A N/A Yes [place] [address] Moderate Rash 06/01/2017 Yes No Known Drug Allergies [id number] Drug Allergy Unknown N/A 09/25/2018 Yes orphenadrine [id number] Drug Allergy Unknown tachycardia, an 09/27/2018 Medications There is no data. Problems Date Dx Coded Attending Type Code Diagnosis Diagnosed By 07/18/2017 SVETA BURTON S00.03XA CONTUSION OF SCALP, INITIAL ENCOUNTER 07/18/2017 SVETA BURTON Y92.214 [facility] OF OCCURRENCE OF THE EXTERNAL CAUSE 07/18/2017 SVETA BURTON Y93.45 ACTIVITY, CHEERLEADING 09/24/2018 EDSON HATFIELD [employer] Ot R10.13 EPIGASTRIC PAIN 09/25/2018 MUKESH LOPEZ MD, Ot J02.9 ACUTE PHARYNGITIS, UNSPECIFIED 09/25/2018 MUKESH LOPEZ MD, Ot J06.9 ACUTE UPPER RESPIRATORY INFECTION, UNSPE 09/25/2018 MUKESH LOPEZ MD, Ot J45.909 UNSPECIFIED ASTHMA, UNCOMPLICATED 09/25/2018 MUKESH LOPEZ MD Ot M79.10 MYALGIA, UNSPECIFIED SITE 09/25/2018 MUKESH LOPEZ MD Ot Z90.89 ACQUIRED ABSENCE OF OTHER ORGANS 09/27/2018 MUKESH LOPEZ MD, Ot J32.2 CHRONIC ETHMOIDAL SINUSITIS 09/27/2018 MUKESH LOPEZ MD, Ot J45.909 UNSPECIFIED ASTHMA, UNCOMPLICATED 09/27/2018 MUKSEH LOPEZ MD, Ot M54.2 CERVICALGIA 09/27/2018 MUKESH LOPEZ MD Ot R51 HEADACHE 09/27/2018 MUKESH LOPEZ MD Ot Z88.8 ALLERGY STATUS TO OTH DRUG/MEDS/BIOL SUB 09/27/2018 MUKESH LOPEZ MD Ot Z90.89 ACQUIRED ABSENCE OF OTHER ORGANS 09/29/2018 MUKESH LOPEZ MD Ot J02.9 ACUTE PHARYNGITIS, UNSPECIFIED 09/29/2018 MUKESH LOPEZ MD Ot J06.9 ACUTE UPPER RESPIRATORY INFECTION, UNSPE 09/29/2018 MUKESH LOPEZ MD Ot J45.909 UNSPECIFIED ASTHMA, UNCOMPLICATED 09/29/2018 MUKESH LOPEZ MD Ot M79.10 MYALGIA, UNSPECIFIED SITE 09/29/2018 MUKESH LOPEZ MD Ot Z90.89 ACQUIRED ABSENCE OF OTHER ORGANS 09/29/2018 MUKESH LOPEZ MD Ot J32.2 CHRONIC ETHMOIDAL SINUSITIS 09/29/2018 MUKESH LOPEZ MD, Ot J45.909 UNSPECIFIED ASTHMA, UNCOMPLICATED 09/29/2018 MUKESH LOPEZ MD Ot M54.2 CERVICALGIA 09/29/2018 MUKESH LOPEZ MD Ot R51 HEADACHE 09/29/2018 MUKESH LOPEZ MD Ot Z88.8 ALLERGY STATUS TO OTH DRUG/MEDS/BIOL SUB 09/29/2018 MUKESH LOPEZ MD Ot Z90.89 ACQUIRED ABSENCE OF OTHER ORGANS 10/08/2018 EDSON HATFIELD Ot R10.13 EPIGASTRIC PAIN Procedures There is no data. Results Test Result Range Complete urinalysis with reflex to culture - 09/25/18 20:05 Urine color determination YELLOW NRG Urine clarity determination CLEAR NRG Urine pH measurement by test strip 8 5-9 Specific gravity of urine by test strip 1.015 1.016- 1.022 Urine protein assay by test strip, semi-quantitative NEGATIVE NEGATIVE Urine glucose detection by automated test strip NEGATIVE NEGATIVE Erythrocytes detection in urine sediment by light microscopy NEGATIVE NEGATIVE Urine ketones detection by automated test strip NEGATIVE NEGATIVE Urine nitrite detection by test strip NEGATIVE NEGATIVE Urine total bilirubin detection by test strip NEGATIVE NEGATIVE Urine urobilinogen measurement by automated test strip (mass/volume) NORMAL NORMAL Urine leukocyte esterase detection by dipstick NEGATIVE NEGATIVE Automated urine sediment erythrocyte count by microscopy (number/high power field) NONE NRG Automated urine sediment leukocyte count by microscopy (number/high power field ) NONE NRG Bacteria detection in urine sediment by light microscopy NONE NRG Squamous epithelial cells detection in urine sediment by light microscopy 2-5 NRG Crystals detection in urine sediment by light microscopy PRESENT NRG Casts detection in urine sediment by light microscopy NONE NRG Mucus detection in urine sediment by light microscopy NEGATIVE NRG Complete urinalysis with reflex to culture NO NRG Amorphous sediment detection in urine sediment by light microscopy MOD JOEL PHOSPHATE NRG Urine beta human chorionic gonadotropin (hCG) measurement - 09/25/18 20:05 Urine beta human chorionic gonadotropin (hCG) measurement NEGATIVE NEGATIVE Complete blood count (CBC) with automated white blood cell (WBC) differential - 09/25/18 20:10 Blood leukocytes automated count (number/volume) 8.9 10*3/uL 4.3-11.0 Blood erythrocytes automated count (number/volume) 4.63 10*6/uL 4.35-5.85 Venous blood hemoglobin measurement (mass/volume) 14.4 g/dL 11.5-16.0 Blood hematocrit (volume fraction) 44 % 35-52 Automated erythrocyte mean corpuscular volume 95 [foz_us] 80-99 Automated erythrocyte mean corpuscular hemoglobin (mass per erythrocyte) 31 pg 25-34 Automated erythrocyte mean corpuscular hemoglobin concentration measurement ( mass/volume) 33 g/dL 32-36 Automated erythrocyte distribution width ratio 11.9 % 10.0-14.5 Automated blood platelet count (count/volume) 252 10*3/uL 130-400 Automated blood platelet mean volume measurement 11.2 [foz_us] 7.4-10.4 Automated blood neutrophils/100 leukocytes 58 % 42-75 Automated blood lymphocytes/100 leukocytes 26 % 12-44 Blood monocytes/100 leukocytes 12 % 0-12 Automated blood eosinophils/100 leukocytes 4 % 0-10 Automated blood basophils/100 leukocytes 0 % 0-10 Blood neutrophils automated count (number/volume) 5.2 10*3 1.8-7.8 Blood lymphocytes automated count (number/volume) 2.3 10*3 1.0-4.0 Blood monocytes automated count (number/volume) 1.0 10*3 0.0-1.0 Automated eosinophil count 0.3 10*3/uL 0.0-0.3 Automated blood basophil count (count/volume) 0.0 10*3/uL 0.0-0.1 Serum heterophile antibody titer - 09/25/18 20:10 Serum heterophile antibody titer NEGATIVE NEGATIVE Comprehensive metabolic panel - 09/25/18 20:10 Serum or plasma sodium measurement (moles/volume) 141 mmol/L 135-145 Serum or plasma potassium measurement (moles/volume) 3.5 mmol/L 3.6-5.0 Serum or plasma chloride measurement (moles/volume) 105 mmol/L 98-107 Carbon dioxide 22 mmol/L 21-32 Serum or plasma anion gap determination (moles/volume) 14 mmol/L 5-14 Serum or plasma urea nitrogen measurement (mass/volume) 16 mg/dL 7-18 Serum or plasma creatinine measurement (mass/volume) 0.80 mg/dL 0.60-1.30 Serum or plasma urea nitrogen/creatinine mass ratio 20 NRG Serum or plasma creatinine measurement with calculation of estimated glomerular filtration rate > NRG Serum or plasma glucose measurement (mass/volume) 82 mg/dL 70-105 Serum or plasma calcium measurement (mass/volume) 10.0 mg/dL 8.5-10.1 Serum or plasma total bilirubin measurement (mass/volume) 0.2 mg/dL 0.1-1.0 Serum or plasma alkaline phosphatase measurement (enzymatic activity/volume) 59 U/L 40-136 Serum or plasma aspartate aminotransferase measurement (enzymatic activity/ volume) 17 U/L 5-34 Serum or plasma alanine aminotransferase measurement (enzymatic activity/volume ) 15 U/L 0-55 Serum or plasma protein measurement (mass/volume) 7.9 g/dL 6.4-8.2 Serum or plasma albumin measurement (mass/volume) 4.8 g/dL 3.2-4.5 Serum or plasma C reactive protein measurement (mass/volume) - 09/25/18 20:10 Serum or plasma C reactive protein measurement (mass/volume) 1.85 mg /dL 0.00-0.50 Influenza virus A and B antigen detection - 09/25/18 20:35 FLU RESULT NEGATIVE FOR INFLUENZA A AND B ANTIGENS BY [facility] Complete blood count (CBC) with automated white blood cell (WBC) differential - 09/26/18 23:55 Blood leukocytes automated count (number/volume) 11.4 10*3/uL 4.3-11.0 Blood erythrocytes automated count (number/volume) 4.18 10*6/uL 4.35-5.85 Venous blood hemoglobin measurement (mass/volume) 13.5 g/dL 11.5-16.0 Blood hematocrit (volume fraction) 40 % 35-52 Automated erythrocyte mean corpuscular volume 96 [foz_us] 80-99 Automated erythrocyte mean corpuscular hemoglobin (mass per erythrocyte) 32 pg 25-34 Automated erythrocyte mean corpuscular hemoglobin concentration measurement ( mass/volume) 34 g/dL 32-36 Automated erythrocyte distribution width ratio 11.9 % 10.0-14.5 Automated blood platelet count (count/volume) 265 10*3/uL 130-400 Automated blood platelet mean volume measurement 11.1 [foz_us] 7.4-10.4 Automated blood neutrophils/100 leukocytes 65 % 42-75 Automated blood lymphocytes/100 leukocytes 24 % 12-44 Blood monocytes/100 leukocytes 8 % 0-12 Automated blood eosinophils/100 leukocytes 3 % 0-10 Automated blood basophils/100 leukocytes 0 % 0-10 Blood neutrophils automated count (number/volume) 7.4 10*3 1.8-7.8 Blood lymphocytes automated count (number/volume) 2.7 10*3 1.0-4.0 Blood monocytes automated count (number/volume) 0.9 10*3 0.0-1.0 Automated eosinophil count 0.4 10*3/uL 0.0-0.3 Automated blood basophil count (count/volume) 0.0 10*3/uL 0.0-0.1 Comprehensive metabolic panel - 09/26/18 23:55 Serum or plasma sodium measurement (moles/volume) 140 mmol/L 135-145 Serum or plasma potassium measurement (moles/volume) 4.0 mmol/L 3.6-5.0 Serum or plasma chloride measurement (moles/volume) 107 mmol/L 98-107 Carbon dioxide 20 mmol/L 21-32 Serum or plasma anion gap determination (moles/volume) 13 mmol/L 5-14 Serum or plasma urea nitrogen measurement (mass/volume) 12 mg/dL 7-18 Serum or plasma creatinine measurement (mass/volume) 0.78 mg/dL 0.60-1.30 Serum or plasma urea nitrogen/creatinine mass ratio 15 NRG Serum or plasma creatinine measurement with calculation of estimated glomerular filtration rate > NRG Serum or plasma glucose measurement (mass/volume) 92 mg/dL 70-105 Serum or plasma calcium measurement (mass/volume) 9.7 mg/dL 8.5-10.1 Serum or plasma total bilirubin measurement (mass/volume) 0.2 mg/dL 0.1-1.0 Serum or plasma alkaline phosphatase measurement (enzymatic activity/volume) 55 U/L 40-136 Serum or plasma aspartate aminotransferase measurement (enzymatic activity/ volume) 14 U/L 5-34 Serum or plasma alanine aminotransferase measurement (enzymatic activity/volume ) 14 U/L 0-55 Serum or plasma protein measurement (mass/volume) 7.3 g/dL 6.4-8.2 Serum or plasma albumin measurement (mass/volume) 4.5 g/dL 3.2-4.5 CALCIUM CORRECTED 9.3 mg/dL 8.5-10.1 Serum or plasma C reactive protein measurement (mass/volume) - 09/26/18 23:55 Serum or plasma C reactive protein measurement (mass/volume) 1.27 mg /dL 0.00-0.50 Encounters ACCT No. Visit Date/Time Discharge Status Pt. Type Provider Facility Loc./Unit Complaint [id number] 06/01/2017 16:38:00 [facility]-FELL DURING CHEER STUNT [id number] 09/26/2018 22:50:00 09/27/2018 01:50:00 DIS Emergency MUKESH LOPEZ MD [facility] ER SPINAL NECK PAIN;HEAD PAIN [id number] 09/25/2018 19:43:00 09/25/2018 22:13:00 DIS Emergency MUKESH LOPEZ MD [facility] ER SORE THROAT,CONGESTION ,SWOLLEN LYMPH NODES [id number] 09/22/2018 07:23:00 09/22/2018 23:59:59 CLS Outpatient EDSON HATFIELD [facility] RAD EPIGASTRIC ABDOMINAL PAIN [id number] 02/12/2018 09:02:00 02/12/2018 11:40:00 DIS Emergency Christina Wang [facility] RAD[facility] ED ed visit [id number] 12/10/2017 11:39:46 12/10/2017 23:59:59 DIS Outpatient MARIA DOLORES BRIZUELA [facility]HA RAD [id number] 06/08/2017 17:14:18 ACT Document Registration
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
[2019-01-27 15:59] VITALS: BP 119/79
== END | disposition home or self-care (01) ==
LOC: EDUNIT# 14:03 → ER 14:05
DX: S46.912A Strain of unspecified muscle, fascia and tendon at shoulder and upper arm level, left arm, initial encounter (principal); S39.012A Strain of muscle, fascia and tendon of lower back, initial encounter; S13.4XXA Sprain of ligaments of cervical spine, initial encounter; J45.909 Unspecified asthma, uncomplicated; Z88.8 Allergy status to other drugs, medicaments and biological substances; Z90.89 Acquired absence of other organs; V49.40XA Driver injured in collision with unspecified motor vehicles in traffic accident, initial encounter
CPT/HCPCS: 70450; 72125

== ENCOUNTER → 2019-08-28 | Outpatient (CLI) | payer BC, OTHER ==
[~2019-08-28] MED LIST changes: -ACETAMINOPHEN 500 MG TAB (TYLENOL) PO STA; +ACHD5005 PO; -APAP 325 MG/10.15 ML LIQ (TYLENOL) UDC PO STA; +ONDA4TAB11 PO
--- NOTE | 2019-08-28 14:53 | Diagnostic Imaging Report ---
INDICATION: Trouble swallowing. FINDINGS: Right lobe of the thyroid measures 5.1 x 1.1 x 1.3 cm and the left lobe measures 4.7 x 1.2 x 1.3 cm. Both lobes of the thyroid demonstrate homogeneous echotexture. No discrete mass is detected. Isthmus is 2 mm in thickness. IMPRESSION: Unremarkable thyroid ultrasound. Dictated by: Dictated on workstation # [id number]
== END ==
LOC: RAD 12:57
PROVIDERS: ATTEND Nurse Practitioner Family
DX: M54.2 Cervicalgia (principal); R13.10 Dysphagia, unspecified
CPT/HCPCS: 76536

== ENCOUNTER 2019-10-03 17:10 | Day surgery (SDC) | payer BC, OTHER ==
[~2019-10-03] VITALS: Ht 160 cm; Wt 59.0 kg
[2019-10-03] VITALS (7 sets, daily range): BP systolic 91–128; BP diastolic 56–91
[~2019-10-03 17:10] MED LIST changes: -ACHD5005 PO; -ONDA4TAB11 PO
--- NOTE | 2019-10-03 17:29 | ED Abdominal Pain ---
General Chief Complaint: Abdominal/GI Problems Stated Complaint: ABD PAIN Nursing Triage Note: SENT FROM URGENT CARE WITH POSSIBLE APPENDICITIS. Sepsis Screen: No Definite Risk Source of Information: Patient Exam Limitations: No Limitations History of Present Illness Date Seen by Provider: Oct 03, 2019 Time Seen by Provider: 17:26 Initial Comments To ER per POV from [facility] Urgent care with c/o lower abdominal pain. This began this mornign as a mild ache, has increased significantly over the course of the day. She's vomited twice, had no appetite and hasnt eaten since last night which was a burger and fries. She is passing gas today, normal BM today. No dysuria. History of ovarian cysts but states that that pain was lower and felt different than this. Timing/Duration: 12-24 Hours Severity/Quality: Severe Location: Periumbilical Radiation: No Radiation Activities at Onset: None Associated Symptoms: No Fever/Chills; Nausea/Vomiting Allergies and Home Medications Allergies Coded Allergies: orphenadrine (Verified Adverse Reaction, Unknown, tachycardia, anxiety, 09/27/18) Home Medications No Active Prescriptions or Reported Meds Patient Home Medication List Home Medication List Reviewed: Yes Review of Systems Review of Systems Constitutional: see HPI EENTM: No Symptoms Reported Respiratory: No Symptoms Reported Cardiovascular: No Symptoms Reported Gastrointestinal: See HPI, Abdominal Pain, Nausea Genitourinary: No Symptoms Reported Musculoskeletal: no symptoms reported Skin: no symptoms reported Psychiatric/Neurological: No Symptoms Reported Endocrine: No Symptoms Reported Hematologic/Lymphatic: No Symptoms Reported Past Usdxfjx-Yjknnq-Eqkwqo Hx Patient Social History 2nd Hand Smoke Exposure: No Recent Foreign Travel: No Contact w/Someone Who Travel: No Recent Infectious Disease Expo: No Recent Hopitalizations: No Immunizations Up To Date Tetanus Booster (TDap): Less than 5yrs Past Medical History Surgeries: Yes Adenoidectomy, Tonsillectomy Respiratory: Yes Asthma Cardiac: Yes (fainting heart syndrome) Neurological: No Genitourinary: No Gastrointestinal: No 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 oz. 49.433498nj; 23.00 BMI Method:Stated General Appearance: moderate distress (r/t pain, tearful, keeps legs flexed at the hips, walks bent forward. ) HEENT: PERRL/EOMI, normal ENT inspection Neck: non-tender, full range of motion Respiratory: no respiratory distress, no accessory muscle use Cardiovascular: regular rate, rhythm, no murmur Gastrointestinal: normal bowel sounds, soft, tenderness (diffuse abdominal TTP) Extremities: normal range of motion, non-tender Neurologic/Psychiatric: alert, normal mood/affect, oriented x 3 Skin: normal color, warm/dry Progress/Results/Core Measures Results/Orders Lab Results Laboratory Tests Test 10/03/19 17:23 Range/Units White Blood Count 12.5 H 4.3-11.0 10^3/uL Red Blood Count 4.25 L 4.35-5.85 10^6/uL Hemoglobin 13.7 11.5-16.0 G/DL Hematocrit 41 35-52 % Mean Corpuscular Volume 97 80-99 FL Mean Corpuscular Hemoglobin 32 25-34 PG Mean Corpuscular Hemoglobin Concent 33 32-36 G/DL Red Cell Distribution Width 12.1 10.0-14.5 % Platelet Count 256 130-400 10^3/uL Mean Platelet Volume 11.4 H 7.4-10.4 FL Neutrophils (%) (Auto) 81 H 42-75 % Lymphocytes (%) (Auto) 13 12-44 % Monocytes (%) (Auto) 5 0-12 % Eosinophils (%) (Auto) 1 0-10 % Basophils (%) (Auto) 0 0-10 % Neutrophils # (Auto) 10.1 H 1.8-7.8 X 10^3 Lymphocytes # (Auto) 1.7 1.0-4.0 X 10^3 Monocytes # (Auto) 0.6 0.0-1.0 X 10^3 Eosinophils # (Auto) 0.2 0.0-0.3 10^3/uL Basophils # (Auto) 0.0 0.0-0.1 10^3/uL Sodium Level 140 135-145 MMOL/L Potassium Level 3.8 3.6-5.0 MMOL/L Chloride Level 105 98-107 MMOL/L Carbon Dioxide Level 22 21-32 MMOL/L Anion Gap 13 5-14 MMOL/L Blood Urea Nitrogen 7 7-18 MG/DL Creatinine 0.81 0.60-1.30 MG/DL Estimat Glomerular Filtration Rate > 60 BUN/Creatinine Ratio 9 Glucose Level 86 70-105 MG/DL Calcium Level 9.6 8.5-10.1 MG/DL Corrected Calcium 8.5-10.1 MG/DL Total Bilirubin 0.5 0.1-1.0 MG/DL Aspartate Amino Transf (AST/SGOT) 19 5-34 U/L Alanine Aminotransferase (ALT/SGPT) 23 0-55 U/L Alkaline Phosphatase 39 L 40-136 U/L Total Protein 7.5 6.4-8.2 GM/DL Albumin 4.9 H 3.2-4.5 GM/DL Serum Test, Qualitative NEGATIVE NEGATIVE My Orders Orders - BALWINDER HAAS [employer]INTED [employer] LAYOUT TAPER Cbc With Automated Diff (10/03/19 17:21) Comprehensive Metabolic Panel (10/03/19 17:21) Ua Culture If Indicated (10/03/19 17:21) Hcg,Qualitative Serum (10/03/19 17:21) Ed Iv/Invasive Line Start (10/03/19 17:21) Ct Abd/Pelv W (Appendicitis) (10/03/19 17:21) Ketorolac Injection (Toradol Injection) (10/03/19 17:30) Iohexol Injection (Omnipaque 350 Mg/Ml 1 (10/03/19 17:45) Received Contrast (Hold Metformin- Contr (10/03/19 17:45) Sodium Chloride Flush (Catheter Flush Sy (10/03/19 17:45) Ns (Ivpb) (Sodium Chloride 0.9% Ivpb Bag (10/03/19 17:45) Ondansetron Injection (Zofran Injectio (10/03/19 17:45) Lactated Ringers (Lr 1000 Ml Iv Solution (10/03/19 17:45) Medications Given in ED Current Medications Medications Dose Ordered Sig/Jerry Route Start Time Stop Time Status Last Admin Dose Admin Iohexol 100 ml ONCE ONCE IV 10/03/19 17:45 10/03/19 17:46 DC 10/03/19 18:03 68 ML Ketorolac Tromethamine 15 mg ONCE ONCE IVP 10/03/19 17:30 10/03/19 17:31 DC 10/03/19 17:32 15 MG Ondansetron HCl 8 mg ONCE ONCE IVP 10/03/19 17:45 10/03/19 17:46 DC 10/03/19 17:44 8 MG Sodium Chloride 10 ml NEEDED PRN IV 10/03/19 17:45 10/03/19 18:03 10 ML Sodium Chloride 100 ml ONCE ONCE IV 10/03/19 17:45 10/03/19 17:46 DC 10/03/19 18:03 80 ML Vital Signs/I&O 10/03/19 17:10 Temp 36.4 Pulse 78 Resp 16 B/P (MAP) 135/87 (103) Pulse Ox 95 O2 Delivery Room Air Blood Pressure Mean: 103 POS Departure Communication (Admissions) Time/Spoke to Admitting Phy: 18:15 Dr wilcox has seen pt in ER, will admit to OR Impression Primary Impression: Acute appendicitis Qualified Codes: K35.30 - Acute appendicitis with localized peritonitis, without perforation or gangrene Disposition: 09 ADMITTED INPATIENT Condition: Stable Admissions Decision to Admit Reason: Admit from ER (General) Decision to Admit/Date: Oct 03, 2019 Time/Decision to Admit Time: 18:15 Departure-Patient Inst. Referrals: NO,LOCAL PHYSICIAN (PCP/Family) Primary Care Physician Scripts No Active Prescriptions or Reported Meds BALWINDER HAAS APRN Oct 03, 2019 17:29 POS
[2019-10-03] MEDS ORDERED: KETOROLAC 30 MG/ML VIAL IVP ONE (17:30)
[2019-10-03 17:31] LABS: BASOPHILS % (AUTO) 0 % (0-10); EOSINOPHILS # (AUTO) 0.2 10^3/uL (0.0-0.3); EOSINOPHILS % (AUTO) 1 % (0-10); HEMATOCRIT 41 % (35-52); HEMOGLOBIN 13.7 G/DL (11.5-16.0); LYMPHOCYTES # (AUTO) 1.7 X 10^3 (1.0-4.0); LYMPHOCYTES % (AUTO) 13 % (12-44); MEAN CORPUSCULAR HEMOGLOBIN 32 PG (25-34); MEAN CORPUSCULAR HGB CONC 33 G/DL (32-36); MEAN CORPUSCULAR VOLUME 97 FL (80-99); MEAN PLATELET VOLUME 11.4 FL (7.4-10.4); MONOCYTES # (AUTO) 0.6 X 10^3 (0.0-1.0); MONOCYTES % (AUTO) 5 % (0-12); NEUTROPHILS # (AUTO) 10.1 X 10^3 (1.8-7.8); NEUTROPHILS % (AUTO) 81 % (42-75); PLATELET COUNT 256 10^3/uL (130-400); RED CELL DISTRIBUTION WIDTH 12.1 % (10.0-14.5); WHITE BLOOD COUNT 12.5 10^3/uL (4.3-11.0)
--- NOTE | 2019-10-03 17:40 | NUR ---
C/O NAUSEA VOMITING CLEAR LIQUID MEDS ORDERED AND GIVEN
[2019-10-03] MEDS ORDERED: IOHEXOL 350 MG/ML 100 ML (OMNIPAQUE 350) VIAL IV ONE (17:45)
[2019-10-03] MEDS ORDERED: HOLD METFORMIN - RECEIVED CONTRAST 20 ML VIAL IV SCH (17:45)
[2019-10-03] MEDS ORDERED: NS 100 ML (IVPB) BAG IV ONE (17:45)
[2019-10-03] MEDS ORDERED: ONDANSETRON 4 MG/2 ML (SDV) Z0FRAN IVP ONE (17:45)
[2019-10-03] MEDS ORDERED: LACTATED RINGERS 1,000 ML IV SCH (17:45)
[2019-10-03] MEDS ORDERED: CATHETER FLUSH 10 ML SYR IV PRN (17:45)
[2019-10-03 17:51] LABS: ALANINE AMINOTRANSFERASE 23 U/L (0-55); ALBUMIN 4.9 GM/DL (3.2-4.5); ALKALINE PHOSPHATASE 39 U/L (40-136); BILIRUBIN,TOTAL 0.5 MG/DL (0.1-1.0); BUN/CREATININE RATIO 9; CALCIUM 9.6 MG/DL (8.5-10.1); CARBON DIOXIDE 22 MMOL/L (21-32); CHLORIDE 105 MMOL/L (98-107); CREATININE SERUM 0.81 MG/DL (0.60-1.30); GFR ESTIMATED > 60; GLUCOSE 86 MG/DL (70-105); POTASSIUM 3.8 MMOL/L (3.6-5.0); SODIUM 140 MMOL/L (135-145); TOTAL PROTEIN 7.5 GM/DL (6.4-8.2)
--- NOTE | 2019-10-03 18:13 | Diagnostic Imaging Report ---
CT ABD/PELV W (APPENDICITIS) TECHNIQUE: Multiple contiguous axial images were obtained through the abdomen and pelvis after administration of intravenous contrast. All CT scans use one or more of the following dose optimizing techniques: automated exposure control, MA and/or KvP adjustment based on a patient size and exam type, or iterative reconstruction. INDICATION: Diffuse abdominal pain. COMPARISON: None available. FINDINGS: Lower chest: The lung bases are clear. No pericardial or pleural effusion. Peritoneum: No free intraperitoneal air or fluid. Liver and biliary system: The liver is normal. The gallbladder is normal. No biliary duct dilation. Spleen and Pancreas: Spleen is normal. The pancreas enhances normally without mass lesion or peripancreatic inflammatory changes. Adrenals: Normal. tract: The kidneys enhance normally without suspicious mass or obstruction. Urinary bladder is distended without wall thickening. <> GI tract: Stomach is decompressed. No bowel obstruction. No pericolonic inflammatory changes. The appendix is distended measuring up to 1.2 cm and is fluid-filled. There is an obstructing appendicolith at the neck of the appendix. No appendiceal rupture or abscess at this time. Vasculature and Lymph nodes: Normal caliber aorta. No abdominal or pelvic lymphadenopathy. Musculoskeletal: No concerning osseous lesion. IMPRESSION: 1. Acute appendicitis due to an obstructing appendicolith at the neck of the appendix. 2. No perforation, abscess or bowel obstruction. Dictated by: Dictated on workstation # [id number]
--- NOTE | 2019-10-03 18:24 | Consultation - Surgery ---
History of Present Illness History of Present Illness Patient Consulted On(thaddeus/time) 10/03/19 18:18 Time Seen by Provider: 18:01 History of Present Illness Surgery asked to consult regarding RLQ pain. HPI per ED: To ER per P[place] [facility] with c/o lower abdominal pain. This began this mornign as a mild ache, has increased significantly over the course of the day. She's vomited twice, had no appetite and hasnt eaten since last night which was a burger and fries. She is passing gas today, normal BM today. No dysuria. History of ovarian cysts but states that that pain was lower and felt different than this. Timing/Duration: 12-24 Hours Severity/Quality: Severe Location: Periumbilical Radiation: No Radiation Activities at Onset: None Associated Symptoms: No Fever/Chills; Nausea/Vomiting When I spoke to pt she states the pain started this morning after she woke up, thought it was gas pain and tried taking 2 Gas-X. Pain got worse and spread all over her lower abdomen. Pain is sharp and stabbing, rating it 7 out of 10. Pain seems to radiate across lower abdomen. Allergies and Home Medications Allergies Coded Allergies: orphenadrine (Verified Adverse Reaction, Unknown, tachycardia, anxiety, 09/27/18) Home Medications No Active Prescriptions or Reported Meds Patient Home Medication List Home Medication List Reviewed: Yes Past Kskkunz-Eaafoh-Vknkjw Hx Patient Social History Alcohol Use: Occasionally Uses Recreational Drug Use: No Smoking Status: Never a Smoker 2nd Hand Smoke Exposure: No Recent Foreign Travel: No Contact w/Someone Who Travel: No Recent Infectious Disease Expo: No Recent Hopitalizations: No Immunizations Up To Date Tetanus Booster (TDap): Less than 5yrs Surgeries History of Surgeries: Yes Surgeries: Adenoidectomy, Tonsillectomy Respiratory History of Respiratory Disorde: Yes Respiratory Disorders: Asthma Cardiovascular History of Cardiac Disorders: Yes (fainting heart syndrome) Neurological History of Neurological Disord: No Reproductive System : No Genitourinary History of Genitourinary Disor: No Gastrointestinal History of Gastrointestinal Di: No Musculoskeletal History of Musculoskeletal Dis: Yes ("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") Endocrine History of Endocrine Disorders: No HEENT History of HEENT Disorders: No Cancer History of Cancer: No Psychosocial History of Psychiatric Problem: No Integumentary History of Skin or Integumenta: No Blood Transfusions History of Blood Disorders: No Family Medical History Significant Family History: No Pertinent Family Hx, Diabetes (grandmother), Hypertension (Father) Review of Systems-General Constitutional: chills, malaise, weakness EENTM: No blurred vision, No double vision, No mouth pain, No mouth swelling, No epistaxis Respiratory: No cough, No dyspnea on exertion, No hemoptysis, No short of breath Cardiovascular: No chest pain, No edema, No palpitations Gastrointestinal: abdominal pain; No hematemesis, No jaundice; loss of appetite Genitourinary: No dysuria, No frequency, No hematuria Musculoskeletal: No joint pain, No joint swelling, No muscle pain Skin: No change in color, No change in hair/nails Psychiatric/Neurological: Denies Anxiety, Denies Depressed, Denies Seizure, Denies Tremors Other Pt denies any hx of abnromal bleeding or bruising Physical Exam-General Problems Physical Exam Vital Signs Vital Signs - First Documented 10/03/19 17:10 Temp 36.4 Pulse 78 Resp 16 B/P (MAP) 135/87 (103) Pulse Ox 95 O2 Delivery Room Air Capillary Refill : Less Than 3 Seconds General Appearance: WD/WN, mild distress Eyes: Bilateral Eye PERRL, Bilateral Eye EOMI HEENT: PERRL/EOMI, pharynx normal Neck: non-tender, full range of motion, supple, normal inspection Respiratory: chest non-tender, lungs clear, normal breath sounds, no respiratory distress, no accessory muscle use Cardiovascular: regular rate, rhythm, no murmur Gastrointestinal: soft, no organomegaly, no pulsatile mass, tenderness (RLQ and LLQ), hernia (small umbilical hernia) Back: no CVA tenderness, no vertebral tenderness Extremities: normal range of motion, non-tender, normal inspection, no pedal edema, no calf tenderness Neurologic/Psychiatric: beef breaker II-XII nml as tested, no motor/sensory deficits, alert, normal mood/affect, oriented x 3 Skin: normal color, warm/dry Lymphatic: no adenopathy (neck, axilla or groin) Data Review Labs Laboratory Tests 10/03/19 17:23: White Blood Count 12.5H, Red Blood Count 4.25L, Hemoglobin 13.7, Hematocrit 41, Mean Corpuscular Volume 97, Mean Corpuscular Hemoglobin 32, Mean Corpuscular Hemoglobin Concent 33, Red Cell Distribution Width 12.1, Platelet Count 256, Mean Platelet Volume 11.4H, Neutrophils (%) (Auto) 81H, Lymphocytes (%) (Auto) 13, Monocytes (%) (Auto) 5, Eosinophils (%) (Auto) 1, Basophils (%) (Auto) 0, Neutrophils # (Auto) 10.1H, Lymphocytes # (Auto) 1.7, Monocytes # (Auto) 0.6, Eosinophils # (Auto) 0.2, Basophils # (Auto) 0.0, Sodium Level 140, Potassium Level 3.8, Chloride Level 105, Carbon Dioxide Level 22, Anion Gap 13, Blood Urea Nitrogen 7, Creatinine 0.81, Estimat Glomerular Filtration Rate > 60, BUN/Creatinine Ratio 9, Glucose Level 86, Calcium Level 9.6, Corrected Calcium , Total Bilirubin 0.5, Aspartate Amino Transf (AST/SGOT) 19, Alanine Aminotransferase (ALT/SGPT) 23, Alkaline Phosphatase 39L, Total Protein 7.5, Albumin 4.9H, Serum Test, Qualitative NEGATIVE Radiology CT ABD/PELV W (APPENDICITIS) TECHNIQUE: Multiple contiguous axial images were obtained through the abdomen and pelvis after administration of intravenous contrast. All CT scans use one or more of the following dose optimizing techniques: automated exposure control, MA and/or KvP adjustment based on a patient size and exam type, or iterative reconstruction. INDICATION: Diffuse abdominal pain. COMPARISON: None available. FINDINGS: Lower chest: The lung bases are clear. No pericardial or pleural effusion. Peritoneum: No free intraperitoneal air or fluid. Liver and biliary system: The liver is normal. The gallbladder is normal. No biliary duct dilation. Spleen and Pancreas: Spleen is normal. The pancreas enhances normally without mass lesion or peripancreatic inflammatory changes. Adrenals: Normal. tract: The kidneys enhance normally without suspicious mass or obstruction. Urinary bladder is distended without wall thickening. <> GI tract: Stomach is decompressed. No bowel obstruction. No pericolonic inflammatory changes. The appendix is distended measuring up to 1.2 cm and is fluid-filled. There is an obstructing appendicolith at the neck of the appendix. No appendiceal rupture or abscess at this time. Vasculature and Lymph nodes: Normal caliber aorta. No abdominal or pelvic lymphadenopathy. Musculoskeletal: No concerning osseous lesion. IMPRESSION: 1. Acute appendicitis due to an obstructing appendicolith at the neck of the appendix. 2. No perforation, abscess or bowel obstruction. Assessment/Plan Assessment/Plan Assessment/Plan Acute Appendicitis Pt has mildly elevated WBC and CT showed large appendix with appendicolith; read as Acute appendicitis. Plan is NPO, IV fluids, pain control, anti-emetics as needed and will go to the OR for Laparoscopic Appendectomy possible open. Will get consent. Discussed risks and complications with the pt not limited to pain, bleeding, infection, scar, damage to bowel and need for further procedure. All questions answered to her satisfaction. LORI LIMON DO Oct 03, 2019 18:24 POS
--- NOTE | 2019-10-03 18:25 | NUR ---
DR LIMON HERE CONSENT SIGINED
[2019-10-03] MEDS ORDERED: ceFAZolin INJECTION 1,000 MG in WATER (STERILE) FOR INJECTION 10 ML IV ONE (18:30)
[2019-10-03] MEDS ORDERED: MIDAZOLAM 2 MG/2 ML (VERSED) VIAL ONE (18:55)
[2019-10-03] MEDS ORDERED: DEXAMETHASONE 10 MG/ML (DECADRON) 1 ML VIAL ONE (18:55)
[2019-10-03] MEDS ORDERED: ONDANSETRON 4 MG/2 ML (SDV) Z0FRAN ONE (18:55)
[2019-10-03] MEDS ORDERED: BUP/EPI 0.5% 1:200,000 (MARCAINE) 10ML VIAL IJ ONE (18:55)
[2019-10-03] MEDS ORDERED: LIDOCAINE PF 2% 5 ML (XYLOCAINE) VIAL ONE (18:55)
[2019-10-03] MEDS ORDERED: fentaNYL INJECTION 100 MCG/2 ML AMP ONE (18:55)
[2019-10-03] MEDS ORDERED: proPOfol 200 MG/20 ML (DIPRIVAN) VIAL IV ONE (18:55)
[2019-10-03] MEDS ORDERED: ceFAZolin INJECTION 1,000 MG ONE (19:09)
[2019-10-03] MEDS ORDERED: SUCCINYLCHOLINE INJ 100 MG/5 ML SYR ONE (19:17)
[2019-10-03] MEDS ORDERED: SEVOFLURANE (ULTANE) 15 ML INHAL SOLN ONE (19:17)
[2019-10-03] MEDS ORDERED: LACTATED RINGERS 1,000 ML IV PRN ×2 (19:19→20:05)
[2019-10-03] MEDS ORDERED: morphine INJ 10 MG/ML 1ML (SYR OR VIAL) ONE (19:28)
--- NOTE | 2019-10-03 19:53 | Progress Note-Post Operative ---
Post-Operative Progess Note Surgeon (s)/Librarian Special Collections (s) Surgeon LORI LIMON DO Librarian Special Collections: TOBIAS [place] Pre-Operative Diagnosis Acute appy Post-Operative Diagnosis same Procedure & Operative Findings Date of Procedure 10/03/19 Procedure Performed/Findings Lap appy Anesthesia Type GET Estimated Blood Loss Estimated blood loss (mL): scant Specimens/Packing Specimens Removed LORI Gannon DO Oct 03, 2019 19:53 POS
[2019-10-03] MEDS ORDERED: ACHD5005 PO (19:57)
[2019-10-03] MEDS ORDERED: ROCURONIUM 10 MG/ML 5 ML SYRINGE IV ONE (19:57)
--- NOTE | 2019-10-03 19:58 | Discharge Inst-Surgical ---
Discharge Inst-Surgical Reconcile Patient Problems Problems Reviewed?: Yes Depart Medication/Instructions New, Converted or Re-Newed RX: RX Given to Pt/Family Patient Instructions Follow up Appt: Make appointment for 1 week. [phone] Instructions: No lifting greater than 20 pounds. No strenuous activity. May shower in 24 hours, no tub bath or soaking. Use incentive spirometer at home as directed. No Smoking Skin/Wound Care: May remove bandages in am. You need to leave the Dermabond on incision it will fall off on it's own. Symptoms to Report: Appetite Changes, Extremity Discoloration, Numbness/Tingling, Swelling Increased, Bleeding Excessive, Eyesight Changes, Pain Increased, Urine Color Change, Constipation(Persistent), Fever over 101 degree F, Pain/Pressure in chest, Urinating Difficulty, Cough Up/Vomit Blood, Heart Beat Irreg/Pounding, Pain/Pressure in jaw, Cramps in feet or legs, Lightheadedness, Pain/Pressure in shoulder, Diarrhea(Persistent), Memory Changes Suddenly, Questions/Concerns, Weight gain consecutive days, Dizziness/Fainting, Nausea/Vomiting, Shortness of Breath, Weight gain over 2 pounds If questions or concerns contact your physician Or seek help at emergency department. Activity Activity Instructions: Avoid Stress to Incision Driving Instructions: No Driving/Refer to Diet Discharge Diet: No Restrictions Diet After 24 Hours: Clear Liquid if Nauseous If Any Problems/Questions/Issu: Contact Your Physician, Go to Emergency Room Skin/Wound Care Infection Signs and Symptoms: Increased Redness, Foul Odor of Wound, Increased Drainage, Skin Itchy or Has a Rash, Increased Swelling, Temperature Above 101 F Bathing Instructions: Shower Stitches/[place]/Dermabond Dis: Dermabond Ice Pack: Ice On and Off Site (as needed for pain) LORI LIMON DO Oct 03, 2019 19:58 POS
[2019-10-03] MEDS ORDERED: ceFAZolin 2 GM/50 ML NS 50 ML IV SCH (20:00)
[2019-10-03] MEDS ORDERED: ONDANSETRON 4 MG/2 ML (SDV) Z0FRAN IVP PRN ×2 (20:00→20:15)
[2019-10-03] MEDS ORDERED: HYDROmorphone 2 MG/ML VIAL (DILAUDID) IV ONE (20:15)
[2019-10-03] MEDS ORDERED: morphine INJ 10 MG/ML 1ML (SYR OR VIAL) IVP ONE (20:15)
[2019-10-03] MEDS ORDERED: MEPERIDINE (DEMEROL) INJ 50 MG/ML IVP ONE (20:15)
[2019-10-03] MEDS ORDERED: fentaNYL INJECTION 100 MCG/2 ML AMP IVP ONE (20:15)
[2019-10-03] MEDS ORDERED: KETOROLAC 30 MG/ML VIAL ONE (23:22)
[2019-10-03] MEDS: KETOROLAC 30 MG/ML VIAL IVP SCH (23:27)
[2019-10-03] MEDS: LACTATED RINGERS 1,000 ML IV SCH (23:27)
[2019-10-04] VITALS: BP 111/62
[2019-10-04] MEDS: ACETAMINOPHEN 500 MG TAB (TYLENOL) PO SCH ×2 (01:28→07:38)
--- NOTE | 2019-10-04 03:43 | OPERATIVE REPORT ---
DATE OF SERVICE: PREOPERATIVE DIAGNOSIS: Acute appendicitis. POSTOPERATIVE DIAGNOSIS: Acute appendicitis, pending pathology. PROCEDURE: Laparoscopic appendectomy. SURGEON: Jack Diaz D.O. PLANER SETUP OPERATOR: Amador Gutierrez MS3. ANESTHESIA: General endotracheal tube. SPECIMEN: Appendix. BLOOD LOSS: Scant. FLUIDS: Per anesthesia. POSTOPERATIVE CONDITION: Stable. INDICATION FOR PROCEDURE: The patient is a 19-year-old female who had pain in the abdomen, going to the right lower quadrant, mildly elevated white count and a CT read as acute appendicitis. FINDINGS: The patient had a very enlarged appendix, with appendicolith; removed and sent to pathology. PROCEDURE NOTE: After informed consent was obtained, the patient was brought to the operating room, placed on the operating table in supine position. She was sterilely prepped and draped in normal fashion. Local lidocaine was used to infiltrate the skin below the umbilicus. I made the incision with #11 blade, carried down through the skin into subcutaneous tissue, deepened down to subcutaneous tissue with Bovie electrocautery down to fascia. Fascia incised with Bovie electrocautery, then bluntly entered the abdomen, swept a finger around, placed 0 Vicryl [id number] suture and placed an 11 mm trocar port under direct visualization. Created pneumoperitoneum and then placed two more ports in normal fashion. Using local lidocaine, 11 blade for stab incision and VersaStep system, all done under direct visualization, one suprapubically and one in left lower quadrant. The patient was then placed slightly Trendelenburg and rotated to left, able to visualize the appendix, it was very large, grasp the mesoappendix and then started coming across the mesoappendix with the LigaSure, clamping, coagulating and transecting and in this fashion coming all the way across the appendiceal artery, ligating it and then coming across the mesoappendix so it was just attached to the cecum, visualized the cecum, appendix and terminal ileum stayed well away from terminal ileum. Switched to 5 mm camera, brought the Endo-EVERTON in and clamped across the base of appendix, clamped and fired thereby transecting the appendix, took a picture of this, placed a bag in the abdomen, placed the appendix in the bag and then removed this through the infraumbilical incision. Placed the port back into the abdomen, looked around, no other obvious pathology. At this point, then placed the patient supine, removed all ports under direct visualization, allowed pneumoperitoneum to escape. I closed the infraumbilical incision with 0 Vicryl [id number] suture. Copiously irrigated all incisions normal saline, closing the two small 5 mm incisions with single interrupted 4-0 undyed Monocryl subcuticular stitch. I closed the infraumbilical incision with 3 interrupted 4-0 undyed Monocryl subcuticular stitches. Area was cleaned and dried and Dermabond placed as well as Band-Aids. The patient then transferred to recovery room in stable condition. Sponge, instrument and needle count correct at the end of the case. Job ID: [id number] DocumentID: [id number] Dictated Date: 10/03/2019 20:01:37 Program Assistant Date: 10/04/2019 03:43:08 Dictated By: DO MANOHAR COE
[2019-10-04 03:56] VITALS: BP 110/56
[2019-10-04] MEDS ORDERED: KETOROLAC 30 MG/ML VIAL ONE (07:03)
[2019-10-04] MEDS: KETOROLAC 30 MG/ML VIAL IVP SCH (07:08)
[2019-10-04] MEDS ORDERED: WATER (STERILE) FOR INJECTION 0 ML ONE ×2 (07:34→07:35)
[2019-10-04] MEDS ORDERED: ceFAZolin INJECTION 0 MG ONE ×2 (07:34→07:35)
[2019-10-04] MEDS: LACTATED RINGERS 1,000 ML IV SCH (07:38)
[2019-10-04] MEDS ORDERED: ceFAZolin 2 GM/50 ML NS 50 ML IV SCH (07:45)
[2019-10-04 08:00] VITALS: BP 122/72
[2019-10-04] MEDS ORDERED: PANTOPRAZOLE 40 MG (PROTONIX) VIAL IVP SCH (09:00)
[2019-10-04 11:12] VITALS: BP 119/73
[2019-10-04] MEDS ORDERED: ONDA4TAB11 PO (11:43)
--- NOTE | 2019-10-04 11:47 | Progress Note - Surgery ---
Subjective Time Seen by a Provider: 11:18 Subjective/Events-last exam Pt seen and examined, has some mild abdominal pain and nausea. Tolerating clears and would like to go home. Review of Systems Cardiovascular: No: Chest Pain Gastrointestinal: Nausea; No: Vomiting Objective Exam Vital Signs Date Time Temp Pulse Resp B/P (MAP) Pulse Ox O2 Delivery O2 Flow Rate FiO2 10/04/19 11:12 37.2 89 20 119/73 (88) 97 Room Air 10/04/19 08:00 36.6 55 20 122/72 (89) 99 Room Air 10/04/19 03:56 37.1 59 20 110/56 (74) 98 Room Air 10/04/19 00:00 36.7 61 18 111/62 (78) 97 Room Air 10/03/19 21:00 Room Air 10/03/19 21:00 36.9 60 18 109/56 (73) 98 Room Air 10/03/19 20:50 37.8 16 110/63 (79) 100 Room Air 10/03/19 20:45 Room Air 10/03/19 20:40 16 111/66 (81) OxyMask 3 10/03/19 20:30 OxyMask 3 10/03/19 20:30 16 108/67 (81) 100 OxyMask 3 10/03/19 20:20 16 117/67 (84) 100 OxyMask 5 10/03/19 20:15 OxyMask 8 10/03/19 20:10 16 91/62 (72) 100 OxyMask 8 10/03/19 20:03 OxyMask 8 10/03/19 20:03 36.4 16 128/91 (103) 100 OxyMask 8 10/03/19 18:52 71 18 111/71 98 10/03/19 17:10 36.4 78 16 135/87 (103) 95 Room Air I & O 10/04/19 06:59 Intake Total 310 ml Balance 310 ml Capillary Refill : Less Than 3 Seconds General Appearance: No Apparent Distress Respiratory: Chest Non Tender, Lungs Clear, Normal Breath Sounds Gastrointestinal: soft, tenderness (mostly at incisions), hernia (small umbilical hernia), other (Incisions are c/d/i) Results Lab Laboratory Tests 10/03/19 17:23: White Blood Count 12.5H, Red Blood Count 4.25L, Hemoglobin 13.7, Hematocrit 41, Mean Corpuscular Volume 97, Mean Corpuscular Hemoglobin 32, Mean Corpuscular Hemoglobin Concent 33, Red Cell Distribution Width 12.1, Platelet Count 256, Mean Platelet Volume 11.4H, Neutrophils (%) (Auto) 81H, Lymphocytes (%) (Auto) 13, Monocytes (%) (Auto) 5, Eosinophils (%) (Auto) 1, Basophils (%) (Auto) 0, Neutrophils # (Auto) 10.1H, Lymphocytes # (Auto) 1.7, Monocytes # (Auto) 0.6, Eosinophils # (Auto) 0.2, Basophils # (Auto) 0.0, Sodium Level 140, Potassium Level 3.8, Chloride Level 105, Carbon Dioxide Level 22, Anion Gap 13, Blood Urea Nitrogen 7, Creatinine 0.81, Estimat Glomerular Filtration Rate > 60, BUN/Creatinine Ratio 9, Glucose Level 86, Calcium Level 9.6, Corrected Calcium , Total Bilirubin 0.5, Aspartate Amino Transf (AST/SGOT) 19, Alanine Aminotransferase (ALT/SGPT) 23, Alkaline Phosphatase 39L, Total Protein 7.5, Albumin 4.9H, Serum Test, Qualitative NEGATIVE Assessment/Plan Assessment/Plan Assessment/Plan S/P lap appy D/C IV and D/C home, will transmit Rx for Zofran. Clinical Quality Measures DVT/VTE Risk/Contraindication: RFS Level Per Nursing on Admit: 0=No Risk/No VTE PPX LORI LIMON DO Oct 04, 2019 11:47 POS
[2019-10-04 12:15] VITALS: BP 119/73
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
== END 2019-10-04 12:15 | disposition home or self-care (01) ==
LOC: EDUNIT# 17:10 → ER 17:11 → SDC 18:16 → 4TH 21:00 → SDC 10-04 12:15
PROVIDERS: ATTEND Surgery
DX: K35.80 Unspecified acute appendicitis (principal); R59.9 Enlarged lymph nodes, unspecified; J45.909 Unspecified asthma, uncomplicated; K21.9 Gastro-esophageal reflux disease without esophagitis; F41.9 Anxiety disorder, unspecified; Z88.8 Allergy status to other drugs, medicaments and biological substances; Z90.89 Acquired absence of other organs
CPT/HCPCS: 36415; 74177; 80053; 84703; 85025; 88304; 96374; 96375